=== PATIENT | male | born 1980 | race Caucasian/White ===

== ENCOUNTER 2016-08-23 00:11 | Emergency (ER) | payer OTHER ==
--- NOTE | ~2016-08-23 | ER ---
ADMIT: 08/23/2016 RM/LOC: ER [facility] MR#: [id number] [address] LALIT DANIELLE Lorraine [address] [place] [address] Emergency Room Report SEX: M AGE: 36 : 1980 DATE: 08/23/2016 TIME: 0011 hours. Please refer to Emilia's T-sheet for complete H and P. HISTORY OF PRESENT ILLNESS: Briefly, the patient is a 36-year-old who comes in with sore throat, fever. PHYSICAL EXAMINATION: VITAL SIGNS: Blood pressure 151/68, pulse 102, respirations 18, temp 100.9, sat 94%. GENERAL: He is in no acute distress. HEENT: He has aphthous ulcers in the back of his throat vesicles. NECK: Soft, supple. Anterior cervical adenopathy. LUNGS: Clear. SKIN: No rash. EMERGENCY ROOM COURSE: Flu test and strep test were negative. Long discussion with him. The patient really would like an antibiotic because he says it will help him. I told him it is most likely viral. He still would like an antibiotic, so we will go ahead and give him one. ASSESSMENT: 1. Pharyngitis. 2. Fever. PLAN: Amoxil 500 t.i.d. for 7 days, fluids, salt water gargle. Tylenol and Motrin. Follow up with Ortho as needed. Chuck Reaves MD/ satya JOB #: [id number] CC: Chuck Reaves MD, Attending Physician Evan Moore MD, Family Physician
--- NOTE | 2016-08-27 15:07 | ER ---
ADMIT: 08/23/2016 RM/LOC: ER [facility] MR#: [id number] [address] [address] DANIELLE COHN [address] [place] [address] Emergency Room Report SEX: M AGE: 36 : 1980 DATE: 08/23/2016 HISTORY OF PRESENT ILLNESS: A 36-year-old male who presents to the emergency room with a sore throat and a fever, started about 24 hours ago. Fever, chills, sore throat. He says that when he brushes his teeth, he had brought up some blood as it hits the back of his throat. It feels like he has Strep in the past, but he also has had blisters in the back of his throat and uvula as a result of acid reflux. He states that he is not taking the acid reflux medication that he was advised to take. He did take a Motrin at 2345 hours to get his temperature down. ALLERGIES: HE HAS NO ALLERGIES. SOCIAL HISTORY: He drinks alcohol daily. PHYSICAL EXAMINATION: VITAL SIGNS: Blood pressure 151/68 with a heart rate of 102, respirations 18, temp is 100.9 with O2 sats at 94%. GENERAL: He is mildly anxious. HEENT: Negative for pain or percussion over the sinuses. He does have mouth ulcerations. They are just beginning to pop up in the uvula. He does have pharyngeal erythema. No exudates present. RESPIRATIONS: No distress. ABDOMEN: Nontender. CVS: Tachycardic. SKIN: Good color and turgor. EXTREMITIES: Well perfused. Oriented x4. PSYCH: Mood and affect, he is a bit anxious. LABORATORY DATA: I did do a strep and an influenza on him. Dr. Reaves will finish up as soon as the results come in. CLINICAL IMPRESSION: Sore throat, most likely viral etiology. TAB Lundy / Chuck Reaves MD / satya JOB #: [id number] CC: Chuck Reaves MD, Attending Physician
== END 2016-08-23 01:25 | disposition home or self-care (01) ==
LOC: ER 00:11
DX: J02.9 Acute pharyngitis, unspecified (principal)